=== PATIENT | female | born 1980 | race Caucasian/White ===

== ENCOUNTER 2018-02-20 21:04 | Emergency (ER) | payer MEDICAID ==
[2018-02-20] MEDS: AMOXICILLIN 500 MG CAP PO (22:18)
== END 2018-02-20 22:44 | disposition home or self-care (01) ==
LOC: M ED 21:04
DX: H72.2X1 Other marginal perforations of tympanic membrane, right ear (principal); Z79.899 Other long term (current) drug therapy
CPT/HCPCS: 99283

== ENCOUNTER 2018-05-03 20:00 | Emergency (ER) | payer OTHER, MEDICAID ==
[2018-05-03 21:33] LABS: CALCIUM OXALATE CRYSTALS RFX LARGE; KETONE, URINE AUTO RFX 1+ mg/dL (NEGATIVE); MUCUS, URINE RFX MODERATE (NEGATIVE); NITRITE, URINE AUTO RFX NEGATIVE (NEGATIVE); RBC, URINE AUTO RFX 73 /HPF (0-3); SPECIFIC GRAVITY UR AUTO RFX 1.028 (1.002-1.035); SQUAM EPITHELIAL CELL UR AURFX 25 /HPF (0-6)
[2018-05-03 21:36] LABS: LEUKOCYTE ESTERASE UR AUTO RFX 3+ (NEGATIVE); WBC, URINE AUTO RFX TNTC /HPF (0-3)
[2018-05-03 21:53] LABS: CONTROL LINE HCG INT CTR LINE PRESENT; HCG, SERUM QUALITATIVE NEGATIVE (NEGATIVE)
[2018-05-03 21:57] LABS: BASO # 0.1 10^3/uL (0.0-0.2); BASO % 0.6 % (0.0-1.0); EOS # 0.1 10^3/uL (0.0-0.50); EOS % 1.5 % (0.0-3.0); HEMATOCRIT 36.4 % (36.0-47.0); HEMOGLOBIN 11.7 g/dl (12.0-15.5); IMMATURE GRANULOCYTE % 0.4 % (0-3.0); LYMPH # 2.6 10^3/uL (1.5-4.5); MEAN CORPUSCULAR HEMOGLOBIN 30.5 pg (27.0-33.0); MEAN CORPUSCULAR HGB CONC 32.1 g/dl (32.0-36.5); MEAN CORPUSCULAR VOLUME 94.8 fl (80.0-96.0); MONO # 0.7 10^3/uL (0.0-0.8); NEUTROPHILS # 5.1 10^3/uL (1.8-7.7); NEUTROPHILS % 59.5 % (36.0-66.0); PLATELET COUNT, AUTOMATED 234 10^3/uL (150-450); RED BLOOD COUNT 3.84 10^6/uL (4.00-5.40); RED CELL DISTRIBUTION WIDTH 13.2 % (11.5-14.5); WHITE BLOOD COUNT 8.5 10^3/uL (4.0-10.0)
[2018-05-03 22:40] LABS: ANION GAP 7 MEQ/L (8-16); BLOOD UREA NITROGEN 10 MG/DL (7-18); CALCIUM LEVEL 8.6 MG/DL (8.5-10.1); CARBON DIOXIDE LEVEL 27 MEQ/L (21-32); CHLORIDE LEVEL 110 MEQ/L (98-107); CREATININE FOR GFR 0.67 MG/DL (0.55-1.30); GLOMERULAR FILTRATION RATE > 60.0 (>58); GLUCOSE, FASTING 107 MG/DL (70-100); POTASSIUM SERUM 3.6 MEQ/L (3.5-5.1); SODIUM LEVEL 144 MEQ/L (136-145)
[2018-05-03] MEDS: NITROFURANTOIN (MACROBID) 100 MG CAP PO (23:15)
== END 2018-05-03 23:27 | disposition home or self-care (01) ==
LOC: M ED 20:00
DX: N30.01 Acute cystitis with hematuria (principal)
CPT/HCPCS: 84703

== ENCOUNTER 2018-07-12 07:59 | Emergency (ER) | payer OTHER ==
[2018-07-12] MEDS: NS 1,000 ML IV (08:30)
[2018-07-12 08:34] LABS: BASO % 0.6 % (0.0-1.0); EOS # 0.1 10^3/uL (0.0-0.50); EOS % 1.3 % (0.0-3.0); HEMATOCRIT 39.9 % (36.0-47.0); IMMATURE GRANULOCYTE % 0.1 % (0-3.0); LYMPH # 1.9 10^3/uL (1.5-4.5); LYMPH % 28.3 % (24.0-44.0); MEAN CORPUSCULAR HEMOGLOBIN 30.6 pg (27.0-33.0); MEAN CORPUSCULAR HGB CONC 32.6 g/dl (32.0-36.5); MEAN CORPUSCULAR VOLUME 93.9 fl (80.0-96.0); MONO # 0.4 10^3/uL (0.0-0.8); MONO % 6.5 % (0.0-5.0); NEUTROPHILS # 4.3 10^3/uL (1.8-7.7); NEUTROPHILS % 63.2 % (36.0-66.0); PLATELET COUNT, AUTOMATED 238 10^3/uL (150-450); RED BLOOD COUNT 4.25 10^6/uL (4.00-5.40); RED CELL DISTRIBUTION WIDTH 12.4 % (11.5-14.5); WHITE BLOOD COUNT 6.7 10^3/uL (4.0-10.0)
[2018-07-12 08:48] LABS: PROTHROMBIN TIME 13.3 SECONDS (12.1-14.4)
[2018-07-12 08:59] LABS: ALBUMIN 3.3 GM/DL (3.2-5.2); ALBUMIN/GLOBULIN RATIO 0.92 (1.00-1.93); ALKALINE PHOSPHATASE 86 U/L (45-117); ALT/SGPT 26 U/L (12-78); ANION GAP 7 MEQ/L (8-16); AST/SGOT 20 U/L (7-37); BILIRUBIN,DIRECT 0.1 MG/DL (0.0-0.2); BILIRUBIN,TOTAL 0.3 MG/DL (0.2-1.0); BLOOD UREA NITROGEN 11 MG/DL (7-18); CALCIUM LEVEL 8.8 MG/DL (8.5-10.1); CARBON DIOXIDE LEVEL 26 MEQ/L (21-32); CHLORIDE LEVEL 109 MEQ/L (98-107); CK-MB VALUE MASS < 1.0 NG/ML (<3.6); CPK CREATINE PHOSPHOKINASE 24 U/L (26-192); CREATININE FOR GFR 0.77 MG/DL (0.55-1.30); GLOMERULAR FILTRATION RATE > 60.0 (>58); GLUCOSE, FASTING 81 MG/DL (70-100); LIPASE 113 U/L (73-393); MB/CK RELATIVE INDEX 4.17 (< OR =4); POTASSIUM SERUM 3.6 MEQ/L (3.5-5.1); SODIUM LEVEL 142 MEQ/L (136-145); TOTAL PROTEIN 6.9 GM/DL (6.4-8.2); TROPONIN I < 0.02 NG/ML (< 0.10)
[2018-07-12] MEDS ORDERED: GASTROGRAFIN SOLUTION 30ML (Q9963) As Ordered (10:35)
[2018-07-12] MEDS: GASTROGRAFIN SOLUTION 30ML PO ×2 (11:00→11:25)
[2018-07-12] MEDS ORDERED: ISOVUE-370 76% 100ML VIAL (Q9967) As Ordered (12:21)
== END 2018-07-12 13:32 | disposition home or self-care (01) ==
LOC: M ED 07:59
DX: R10.9 Unspecified abdominal pain (principal)
CPT/HCPCS: Q9967

== ENCOUNTER 2018-09-07 07:42 | Emergency (ER) | payer OTHER ==
[~2018-09-07] VITALS: Ht 167.6 cm; Wt 101.8 kg
[~2018-09-07 07:42] MED LIST: AMOX500C PO; CALC1TAB11 PO; CALC250T PO; CLAR10CA3 PO; FERR240T PO; MACR100C43 PO; MULTCAP PO; OCUF0.25 OP; OFLOSO OTIC; PYRI1TAB5 PO; VITA-176 PO; VITA500T53 PO; iron PO
[2018-09-07] MEDS ORDERED: AMOX875T2 PO (07:51)
[2018-09-07] MEDS ORDERED: NS 500 ML IV ONE (08:00)
[2018-09-07 08:16] LABS: BASO % 0.6 % (0.0-1.0); EOS # 0.1 10^3/uL (0.0-0.50); EOS % 1.9 % (0.0-3.0); HEMOGLOBIN 14.3 g/dl (12.0-15.5); LYMPH % 29.4 % (24.0-44.0); MEAN CORPUSCULAR HEMOGLOBIN 31.2 pg (27.0-33.0); MEAN CORPUSCULAR HGB CONC 33.3 g/dl (32.0-36.5); MEAN CORPUSCULAR VOLUME 93.9 fl (80.0-96.0); MONO # 0.5 10^3/uL (0.0-0.8); MONO % 6.8 % (0.0-5.0); NEUTROPHILS # 4.1 10^3/uL (1.8-7.7); NEUTROPHILS % 61.2 % (36.0-66.0); PLATELET COUNT, AUTOMATED 263 10^3/uL (150-450); RED BLOOD COUNT 4.58 10^6/uL (4.00-5.40); WHITE BLOOD COUNT 6.7 10^3/uL (4.0-10.0)
[2018-09-07 08:28] LABS: INR 0.99; PROTHROMBIN TIME 13.2 SECONDS (12.1-14.4)
[2018-09-07 08:29] LABS: PARTIAL THROMBOPLASTIN TIME 28.8 SECONDS (25.4-37.6)
[2018-09-07 08:51] LABS: ALBUMIN 3.5 GM/DL (3.2-5.2); ALT/SGPT 20 U/L (12-78); BILIRUBIN,DIRECT 0.2 MG/DL (0.0-0.2); BILIRUBIN,TOTAL 0.4 MG/DL (0.2-1.0); BLOOD UREA NITROGEN 14 MG/DL (7-18); CALCIUM LEVEL 8.8 MG/DL (8.5-10.1); CARBON DIOXIDE LEVEL 28 MEQ/L (21-32); CHLORIDE LEVEL 105 MEQ/L (98-107); CK-MB VALUE MASS < 1.0 NG/ML (<3.6); CPK CREATINE PHOSPHOKINASE 22 U/L (26-192); CREATININE FOR GFR 0.75 MG/DL (0.55-1.30); FREE T4 0.84 NG/DL (0.76-1.46); GLOMERULAR FILTRATION RATE > 60.0 (>58); GLUCOSE, FASTING 84 MG/DL (70-100); LIPASE 119 U/L (73-393); MB/CK RELATIVE INDEX 4.55 (< OR =4); SODIUM LEVEL 139 MEQ/L (136-145); THYROID STIMULATING HORMONE 0.694 uIU/ML (0.358-3.740); TOTAL PROTEIN 7.5 GM/DL (6.4-8.2); TROPONIN I < 0.02 NG/ML (< 0.10)
[2018-09-07] MEDS ORDERED: ISOVUE-370 76% 100ML VIAL (Q9967) As Ordered ONE (09:04)
--- NOTE | 2018-09-07 09:27 | REP ---
Chest one-view HISTORY: Chest pain Comparison: 07/12/2018 The lungs are clear. The heart is normal in size. The pulmonary vasculature is normal in appearance. Impression: No acute disease. Electronically Signed by David Bourgeois MD 09/07/2018 09:19 A
--- NOTE | 2018-09-07 09:47 | REP ---
CT PULMONARY ANGIOGRAM: With IV contrast. HISTORY: History of gastric bypass surgery. Rule out pulmonary embolus. Chest pain. COMPARISON STUDIES: No comparison chest CT. CONTRAST DOSE: 100 mL of Isovue [address] TECHNIQUE: Helical scanning is acquired and overlapping 1.5 mm and contiguous 3 mm axial images are reformatted. In addition, maximum intensity projection and multiplanar re-formation images are generated in sagittal and coronal imaging projections. CT PULMONARY ANGIOGRAPHIC FINDINGS: There is good opacification of the pulmonary arterial tree. There is no CT evidence of pulmonary embolism. Thoracic aorta enhances homogeneously without evidence of aneurysm or dissection. No hilar or mediastinal mass or adenopathy is observed. Gastric bypass sutures are noted in the left upper abdomen. No adrenal lesion is seen. There is no pleural or pericardial effusion. The lung lux are clear. No bony abnormality is seen. IMPRESSION: No CT evidence of pulmonary embolus. Status post gastric bypass procedure. No active cardiopulmonary disease. Electronically Signed by Han Acevedo MD 09/07/2018 10:46 A
--- NOTE | 2018-09-07 09:50 | REP ---
CT ABDOMEN PELVIS WITH IV BUT WITHOUT ORAL CONTRAST: HISTORY: History of gastric bypass procedure. Rule out abdominal pathology. Comparison CT study July 12, 2018. CT contrast dose: 100 mL of intravenous Isovue 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 There is some evidence of mild fatty infiltration of the liver. Gastric bypass sutures are noted in the left upper abdomen. No abnormal fluid collection is seen. No adrenal lesion is observed. The pancreas is unremarkable. No splenic abnormality is seen. The kidneys enhance symmetrically and are morphologically intact. Some tiny cysts are seen in the right lower pole. No retroperitoneal mass or adenopathy is seen. No abdominal wall defect. Urinary bladder, uterus, and ovaries are unremarkable. There is left colonic diverticulosis. The previously noted mural thickening in the left colon has resolved. There is no evidence of enterocolitis or diverticulitis. Normal appendix is seen. No bony abnormality is observed. IMPRESSION: Status post gastric bypass procedure. Left colonic diverticulosis without evidence of diverticulitis or enterocolitis today. Normal appendix seen. No acute abdominal or pelvic abnormality. Electronically Signed by Han Acevedo MD 09/07/2018 10:46 A
[2018-09-07 12:47] LABS: CK-MB VALUE MASS < 1.0 NG/ML (<3.6); CPK CREATINE PHOSPHOKINASE 28 U/L (26-192); MB/CK RELATIVE INDEX 3.57 (< OR =4); TROPONIN I < 0.02 NG/ML (< 0.10)
[2018-09-07 13:15] VITALS: BP 129/73
--- NOTE | 2018-09-07 19:56 | ECGEPIP ---
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
--- NOTE | 2018-09-07 20:08 | ECGEPIP ---
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
== END 2018-09-07 13:27 | disposition home or self-care (01) ==
LOC: M ED 07:42
DX: R07.89 Other chest pain (principal); R11.0 Nausea; I10 Essential (primary) hypertension; Z98.84 Bariatric surgery status; Z79.899 Other long term (current) drug therapy; Z79.2 Long term (current) use of antibiotics
CPT/HCPCS: 36415; 71045; 71275; 74177; 80048; 80076; 82550; 82553; 83690; 84439; 84443; 85025; 85610; 85730; 93005; 93041; 94760; 96360; 96361; 99285; Q9967

== ENCOUNTER 2018-12-28 08:46 | Emergency (ER) | payer OTHER ==
[~2018-12-28] VITALS: Ht 165.1 cm; Wt 112.7 kg
[~2018-12-28 08:46] MED LIST changes: +AMOX875T2 PO; +CITRTAB13 PO; +VITA500T17 PO; -VITA500T53 PO
[2018-12-28] MEDS ORDERED: LORA-674 (08:53)
[2018-12-28] MEDS ORDERED: KEFL500C17 PO (09:36)
[2018-12-28] MEDS ORDERED: KETOROLAC 60 MG/2 ML VIAL (J1885) IM ONE (09:45)
[2018-12-28] MEDS ORDERED: CEPHALEXIN 500 MG CAP PO ONE (09:45)
[2018-12-28 10:04] VITALS: BP 127/67
== END 2018-12-28 10:17 | disposition home or self-care (01) ==
LOC: M ED 08:46
DX: G89.29 Other chronic pain (principal); M25.561 Pain in right knee; M25.562 Pain in left knee; G89.18 Other acute postprocedural pain; Z98.84 Bariatric surgery status; E78.00 Pure hypercholesterolemia, unspecified; K57.32 Diverticulitis of large intestine without perforation or abscess without bleeding; E34.9 Endocrine disorder, unspecified; E04.9 Nontoxic goiter, unspecified; Z79.899 Other long term (current) drug therapy; Z91.030 Bee allergy status
CPT/HCPCS: 96372; 99284; J1885

== ENCOUNTER 2019-04-07 15:53 | Emergency (ER) | payer OTHER ==
[~2019-04-07] VITALS: Ht 165.1 cm; Wt 82.7 kg
[~2019-04-07 15:53] MED LIST changes: +KEFL500C17 PO; +LORA-674
[2019-04-07] MEDS ORDERED: LIDOCAINE 2% W/ EPINEPHRINE 1.7 ML DENTAL INJ SM ONE (17:15)
[2019-04-07] MEDS ORDERED: BENZOCAINE 20% GEL 9GM TUBE (ANBESOL MAX STRENGTH) TOP ONE (17:15)
[2019-04-07] MEDS ORDERED: AUGM875T28 PO (17:38)
[2019-04-07 17:42] VITALS: BP 155/71
== END 2019-04-07 17:45 | disposition home or self-care (01) ==
LOC: M ED 15:53
DX: K04.7 Periapical abscess without sinus (principal); K02.9 Dental caries, unspecified; Z98.84 Bariatric surgery status; E78.00 Pure hypercholesterolemia, unspecified; K57.32 Diverticulitis of large intestine without perforation or abscess without bleeding; E04.9 Nontoxic goiter, unspecified; Z79.899 Other long term (current) drug therapy; Z91.030 Bee allergy status

== ENCOUNTER 2019-06-02 06:04 | Day surgery (SDC) | payer OTHER ==
[2019-06-02] VITALS (8 sets, daily range): BP systolic 119–143; BP diastolic 63–83
[~2019-06-02] VITALS: Ht 165.1 cm; Wt 120.7 kg
[~2019-06-02 06:04] MED LIST changes: +AUGM875T28 PO; +LIDOCAINE 1% MDV 20ML VIAL SQ PRN; -LORA-674; +LORA-674 PO; +LR 1,000 ML IV ONE; +ceFAZolin SOD 2 GM in IV 1 EA IV ONE
[2019-06-02 06:33] LABS: HEMATOCRIT 40.8 % (36.0-47.0); HEMOGLOBIN 13.4 g/dl (12.0-15.5); MEAN CORPUSCULAR HEMOGLOBIN 31.2 pg (27.0-33.0); MEAN CORPUSCULAR HGB CONC 32.8 g/dl (32.0-36.5); MEAN CORPUSCULAR VOLUME 94.9 fl (80.0-96.0); PLATELET COUNT, AUTOMATED 255 10^3/uL (150-450); WHITE BLOOD COUNT 6.3 10^3/uL (4.0-10.0)
[2019-06-02] MEDS ORDERED: ONDANSETRON 4MG/2ML VIAL (J2405) As Ordered ONE ×2 (07:08→11:22)
[2019-06-02] MEDS ORDERED: ROCURONIUM BROMIDE 50 MG/5 ML VIAL As Ordered ONE ×3 (07:08→09:18)
[2019-06-02] MEDS ORDERED: PROPOFOL 200 MG/20 ML VIAL As Ordered ONE (07:08)
[2019-06-02] MEDS ORDERED: LIDOCAINE 2% INJ 100 MG/5 ML SDV (FOR ANES.) As Ordered ONE (07:08)
[2019-06-02] MEDS ORDERED: dexameTHASONE 4 MG/ML 1ML VIAL (J1100) As Ordered ONE (07:08)
[2019-06-02] MEDS ORDERED: fentaNYL 100 MCG/2 ML INJECTION (J3010) As Ordered ONE ×2 (07:09→10:08)
[2019-06-02] MEDS ORDERED: MIDAZOLAM INJ 2 MG/2 ML VIAL (J2250) As Ordered ONE (07:09)
[2019-06-02] MEDS ORDERED: LACRILUBE (AKWA TEARS) OPHTH OINT 3.5 GM As Ordered ONE (07:12)
[2019-06-02] MEDS ORDERED: METHYLENE BLUE 0.5% (5MG/ML) 10 ML AMP (PROVAYBLUE)(Q9968 PER 1MG) As Ordered ONE (07:13)
[2019-06-02] MEDS ORDERED: SCOPOLAMINE 1MG TRANSDERMAL PATCH As Ordered ONE (07:29)
[2019-06-02] MEDS ORDERED: SCOPOLAMINE 1MG TRANSDERMAL PATCH TOP ONE (07:45)
[2019-06-02] MEDS ORDERED: HYDROmorphone HCL 2 MG/ML 1ML VIAL (J1170) As Ordered ONE (07:55)
[2019-06-02] MEDS ORDERED: KETAMINE HCL 200 MG/20 ML VIAL As Ordered ONE (08:20)
[2019-06-02] MEDS ORDERED: SUGAMMADEX SODIUM 500 MG/5 ML VIAL (BRIDION) As Ordered ONE (08:23)
[2019-06-02] MEDS ORDERED: ACETAMINOPHEN 1000MG 100ML IV BTL (OFIRMEV) (J0131 PER 10MG) As Ordered ONE (08:23)
[2019-06-02] MEDS ORDERED: DESFLURANE 240 ML INHALANT As Ordered ONE (09:23)
[2019-06-02] MEDS ORDERED: MORPHINE 1MG/ML IN 0.9% NACL 100ML IV BAG As Ordered ONE (11:32)
[2019-06-02] MEDS ORDERED: IBUPROFEN 600 MG TAB PO PRN (11:45)
[2019-06-02] MEDS ORDERED: LR 1,000 ML IV SCH ×2 (12:00)
[2019-06-02] MEDS ORDERED: fentaNYL 100 MCG/2 ML INJECTION (J3010) IV PRN (12:00)
[2019-06-02] MEDS ORDERED: NALBUPHINE HCL 10 MG/ML AMP (J2300) IV PRN (12:00)
[2019-06-02] MEDS ORDERED: ONDANSETRON 4MG/2ML VIAL (J2405) IV PRN (12:00)
[2019-06-02] MEDS ORDERED: diphenhydrAMINE INJ 50MG/ML VIAL (J1200) IV PRN (12:00)
[2019-06-02] MEDS ORDERED: MORPHINE 1MG/ML IN 0.9% NACL 100ML IV BAG IV PRN (12:00)
[2019-06-02] MEDS ORDERED: NALOXONE INJ 0.4 MG/1 ML VIAL (J2310) IV PRN (12:00)
[2019-06-02] MEDS ORDERED: METOCLOPRAMIDE INJ 10MG/2ML VIAL (J2765) IV PRN (12:00)
[2019-06-02] MEDS ORDERED: oxyCODONE 5MG TAB PO PRN (12:00)
[2019-06-02] MEDS ORDERED: EPIDURAL/PCA KEYS XX PRN (12:00)
[2019-06-02] MEDS ORDERED: MEPERIDINE INJ 25 MG/ML VIAL (J2175) IV PRN (12:00)
[2019-06-02] MEDS: LR 1,000 ML IV SCH ×2 (15:00→22:33)
--- NOTE | 2019-06-02 16:09 | RO ---
DATE OF PROCEDURE: 06/02/2019 PREOPERATIVE DIAGNOSIS: Pain and bleeding. POSTOPERATIVE DIAGNOSIS: Pain and bleeding, plus adhesions and evidence of endometriosis. OPERATIVE PROCEDURE: Robotic-assisted hysterectomy with bilateral salpingo-oophorectomy. She did have lysis of adhesions, but they were more or less incidental to the case. SURGEON: Susanna Mcmahon MD CASINO SHIFT MANAGER: None. ANESTHESIA: General endotracheal anesthesia. BRIEF DESCRIPTION OF PROCEDURE AND FINDINGS: Shelly was brought to the operating room where sufficient general endotracheal anesthesia was induced and she was prepped, draped and positioned in the usual sterile fashion with the uterine manipulator placed after the uterus had been sounded to 11 and the Gray placed. Attention was then turned to the abdomen. A transverse semilunar incision was made below the umbilicus. Sharp and blunt dissection were continued through subcutaneous tissues to the level of the rectus fascia which was elevated transversely incised and secured with #0 Vicryl retention sutures and the peritoneum then bluntly entered. The patient's tissues were of less tensile strength than some and the suture tore through it, actually had to resuture that and place the Bran cannula for CO2 insufflation. We had quite a bit of leakage at the umbilical wound. We went ahead and put another suture through the wound to try to tighten up the wound to facilitate good seal, tried to incorporate fascia and skin in that but it tore through the fascia so I subsequently found out at the end of the case, and so we did have a sort of mediocre seal there. We placed two left-sided, one right side port and docked the robot with the patient in steep Trendelenburg and began working starting on the left infundibulopelvic. We did take down some adhesions to the intestines in order to free up the infundibulopelvics so we could then cauterize it and transect it. We used the bipolar cautery throughout the case for cauterization and cold scissors most of the time except as otherwise dictated. Having freed the distal portion of her tubes which clearly had had tubal ligation before and the ovary from the infundibulopelvic and worked our way towards the round ligament, we continued to the broad, dissecting down posteriorly toward the ureterosacral and then cauterized and transected the round ligament on the left side as well and then went over to the right side using the uterus to place some tension on the adnexa and elevate the ovary and then isolated the infundibulopelvic ligament on the right side, cauterized and transected it, working very close to the ovary here so as to avoid injury to the other tissues and then working through this pedicle to the round. The patient had a very atypical largely vascular round ligament. These vessels clearly were bleeding blood. We were able to see the course of the ureter proximal to the infundibulopelvic ligament and not running through the round, but these were atypically large vessels, but we proceeded with considerable caution and just gradually worked our way through these. She did not have the kind of large fibroids one often sees with that kind of vascularity. The uterus sounded to 11, it was not small, but it was a fairly average contour. I went ahead and dissected anteriorly through the broad ligament as well and using the cold scissors, transected the peritoneum across the front of the uterus. We backfilled the bladder as needed and we were well above it. We were able to dissect the bladder flap free. There were some adhesions there anteriorly, so we did have to use cautery, but we had backfilled several times so we had a good sense of where the bladder was to avoid injury to it and we then cauterized the uterine vasculature. Again, there was redundancy of the blood vessels. We worked a little distal to the typical and then worked our way down to where we had to be to transect the colpotomy and just controlled the vessels in several steps rather than trying to get them all at once. We made the initial colpotomy posteriorly and left the uterosacrals attached in this hysterectomy for benign disease working above them laterally and then coming down posteriorly to make the colpotomy in the midline and working back up so that we could leave the uterosacrals fully attached and essentially do an extrafascial hysterectomy. We then having gotten about half way around the uterus, went back to the front and connected up that dissection, carefully cauterizing any uterine vasculature that needed it as we worked. Having completed the colpotomy we delivered the uterus into the vagina and then closed the vaginal cuff with Monocryl suture with good approximation and hemostasis achieved. We suctioned out some of the old blood in the pelvis and left the tissues on low tension. We could see that there was no bleeding and no evidence of injury to bladder with backfilling and no evidence of injury to the bowel. We then ended the robotic portion of the case. With the CO2 allowed to escape the abdomen and the instruments removed, and the trocars removed, the patient was removed from Trendelenburg as well and of course the robot backed off. We closed the wounds, fascial wound at the umbilicus with a #0 Vicryl retention suture. Went back and resutured that because it had pulled through as I already noted and having closed the fascia there we went ahead and closed the skin at all four wounds with #3-0 Vicryl in a subcuticular stitch. Dry sterile dressings were then applied. Estimated blood loss for the procedure about 75 mL. Fluid replacement was crystalloid. Complications: None. CONDITION AND DISPOSITION: Shelly tolerated the procedure well and was recovering in the recovery room in good condition.
[2019-06-03] VITALS: BP 124/67
[2019-06-03 04:00] VITALS: BP 134/68
[2019-06-03] MEDS ORDERED: NORCO, ANEXSIA 5/325MG TABLET (HYDROcodone/ACETAMINOPHEN) PO PRN ×2 (06:00)
[2019-06-03 07:34] LABS: HEMATOCRIT 36.7 % (36.0-47.0); HEMOGLOBIN 12.5 g/dl (12.0-15.5); MEAN CORPUSCULAR HEMOGLOBIN 31.9 pg (27.0-33.0); MEAN CORPUSCULAR HGB CONC 34.1 g/dl (32.0-36.5); MEAN CORPUSCULAR VOLUME 93.6 fl (80.0-96.0); PLATELET COUNT, AUTOMATED 245 10^3/uL (150-450); RED BLOOD COUNT 3.92 10^6/uL (4.00-5.40); WHITE BLOOD COUNT 8.8 10^3/uL (4.0-10.0)
[2019-06-03] MEDS: LR 1,000 ML IV SCH (07:59)
[2019-06-03 08:00] VITALS: BP 139/70
[2019-06-03] MEDS ORDERED: ACETAMINOPHEN TAB 650MG DOSE (2X325MG) PO ONE (09:00)
[2019-06-03] MEDS ORDERED: MULTIVITAMINS/MINERALS THERAP 1 TAB PO SCH (09:00)
== END 2019-06-03 09:25 | disposition home or self-care (01) ==
LOC: M SDC 06:04 → M PED 12:22 → M SDC 06-03 09:25
PROVIDERS: ATTEND Obstetrics & Gynecology
DX: N93.9 Abnormal uterine and vaginal bleeding, unspecified (principal); K66.0 Peritoneal adhesions (postprocedural) (postinfection); N80.0 Endometriosis of uterus; N83.11 Corpus luteum cyst of right ovary; E04.1 Nontoxic single thyroid nodule; N39.41 Urge incontinence; E66.9 Obesity, unspecified; Z68.38 Body mass index [BMI] 38.0-38.9, adult; Z91.030 Bee allergy status; Z79.899 Other long term (current) drug therapy; Z86.59 Personal history of other mental and behavioral disorders; Z98.51 Tubal ligation status; Z98.84 Bariatric surgery status
CPT/HCPCS: 36415; 58571; 85027; 86850; 86900; 86901; 88307; 96374; 96375; J0131; J0690; J1100; J1170; J2250; J2405; J2765; J3010; Q9968

== ENCOUNTER → 2019-12-13 | Outpatient (REF) | payer OTHER ==
[~2019-12-13] MED LIST changes: -CITRTAB13 PO; +CITRTAB16 PO; -LIDOCAINE 1% MDV 20ML VIAL SQ PRN; -LR 1,000 ML IV ONE; -ceFAZolin SOD 2 GM in IV 1 EA IV ONE
[2019-12-13 13:37] LABS: BASO % 0.4 % (0.0-1.0); EOS # 0.3 10^3/uL (0.0-0.5); EOS % 4.3 % (0.0-3.0); HEMATOCRIT 39.7 % (36.0-47.0); LYMPH # 2.2 10^3/uL (1.5-5.0); LYMPH % 28.4 % (24.0-44.0); MEAN CORPUSCULAR HEMOGLOBIN 30.4 pg (27.0-33.0); MEAN CORPUSCULAR HGB CONC 32.7 g/dl (32.0-36.5); MEAN CORPUSCULAR VOLUME 92.8 fl (80.0-96.0); MONO # 0.5 10^3/uL (0.0-0.8); MONO % 6.9 % (0.0-5.0); NEUTROPHILS # 4.7 10^3/uL (1.5-8.5); NEUTROPHILS % 59.7 % (36.0-66.0); PLATELET COUNT, AUTOMATED 293 10^3/uL (150-450); RED BLOOD COUNT 4.28 10^6/uL (4.00-5.40); WHITE BLOOD COUNT 7.8 10^3/uL (4.0-10.0)
[2019-12-13 14:01] LABS: CHOLESTEROL RISK RATIO 2.628 (<5); FREE T4 0.94 NG/DL (0.76-1.46); THYROID STIMULATING HORMONE 1.21 uIU/ML (0.358-3.740); TOTAL 25(OH) VITAMIN D 33.7 NG/ML (30.0-100.0)
[2019-12-13 14:12] LABS: HEMOGLOBIN A1c 5.9 %
== END ==
LOC: M SFHCPLAZ 12:05
PROVIDERS: ATTEND Physician Assistant
DX: Z98.84 Bariatric surgery status (principal); Z13.1 Encounter for screening for diabetes mellitus; Z13.220 Encounter for screening for lipoid disorders

== ENCOUNTER → 2021-02-22 | Outpatient (CLI) | payer OTHER ==
[2021-02-22 10:59] LABS: HEMATOCRIT 38.4 % (36.0-47.0); HEMOGLOBIN 12.4 g/dl (12.0-15.5); MEAN CORPUSCULAR HEMOGLOBIN 29.5 pg (27.0-33.0); MEAN CORPUSCULAR HGB CONC 32.3 g/dl (32.0-36.5); MEAN CORPUSCULAR VOLUME 91.4 fl (80.0-96.0); PLATELET COUNT, AUTOMATED 271 10^3/uL (150-450); WHITE BLOOD COUNT 6.6 10^3/uL (4.0-10.0)
[2021-02-22 11:20] LABS: HEMOGLOBIN A1c 5.6 %
[2021-02-22 11:30] LABS: ALBUMIN 3.4 GM/DL (3.2-5.2); ALT/SGPT 18 U/L (12-78); BILIRUBIN,TOTAL 0.3 MG/DL (0.2-1.0); BLOOD UREA NITROGEN 13 MG/DL (7-18); CALCIUM LEVEL 8.3 MG/DL (8.5-10.1); CARBON DIOXIDE LEVEL 28 MEQ/L (21-32); CHLORIDE LEVEL 109 MEQ/L (98-107); CHOLESTEROL LEVEL 182 MG/DL (<200); CHOLESTEROL RISK RATIO 2.757 (<5); CREATININE FOR GFR 0.77 MG/DL (0.55-1.30); GLOMERULAR FILTRATION RATE > 60.0 (>58); GLUCOSE, FASTING 84 MG/DL (70-100); HDL CHOLESTEROL 66 MG/DL (>40); IRON (FE) 62 UG/DL (50-170); LDL CHOLESTEROL 99 MG/DL (<100); NON-HDL-C 116 MG/DL; POTASSIUM SERUM 4.3 MEQ/L (3.5-5.1); SODIUM LEVEL 140 MEQ/L (136-145); TOTAL PROTEIN 6.9 GM/DL (6.4-8.2); TRIGLYCERIDES LEVEL 83 MG/DL (<150)
[2021-02-22 11:31] LABS: TOTAL 25(OH) VITAMIN D 27.3 NG/ML (30.0-100.0); VITAMIN B12 LEVEL 473 PG/ML
[2021-02-22 11:32] LABS: FOLATE 8.4 NG/ML
== END ==
LOC: M PLALAB 08:13
PROVIDERS: ATTEND Physician Assistant
DX: R73.01 Impaired fasting glucose (principal); Z98.84 Bariatric surgery status; Z00.00 Encounter for general adult medical examination without abnormal findings

== ENCOUNTER → 2021-11-28 | Outpatient (CLI) | payer OTHER ==
[2021-11-28 15:44] LABS: INR 0.9; PROTHROMBIN TIME 12.6 SECONDS (12.7-14.5)
[2021-11-28 15:45] LABS: PARTIAL THROMBOPLASTIN TIME 30.9 SECONDS (25.9-37.0)
[2021-11-28 15:49] LABS: BASO # 0.1 10^3/uL (0.0-0.2); BASO % 0.6 % (0.0-1.0); EOS # 0.3 10^3/uL (0.0-0.5); EOS % 3.5 % (0.0-3.0); HEMATOCRIT 40.3 % (36.0-47.0); HEMOGLOBIN 12.9 g/dl (12.0-15.5); LYMPH # 2.9 10^3/uL (1.5-5.0); LYMPH % 33.6 % (24.0-44.0); MEAN CORPUSCULAR HEMOGLOBIN 29.7 pg (27.0-33.0); MEAN CORPUSCULAR VOLUME 92.6 fl (80.0-96.0); MONO # 0.7 10^3/uL (0.0-0.8); MONO % 7.8 % (2.0-8.0); NEUTROPHILS # 4.6 10^3/uL (1.5-8.5); NEUTROPHILS % 54.1 % (36.0-66.0); PLATELET COUNT, AUTOMATED 320 10^3/uL (150-450); RED BLOOD COUNT 4.35 10^6/uL (4.00-5.40); WHITE BLOOD COUNT 8.6 10^3/uL (4.0-10.0)
[2021-11-28 16:26] LABS: ALBUMIN 3.4 GM/DL (3.2-5.2); ALT/SGPT 22 U/L (12-78); BILIRUBIN,TOTAL 0.3 MG/DL (0.2-1.0); BLOOD UREA NITROGEN 10 MG/DL (7-18); CARBON DIOXIDE LEVEL 30 MEQ/L (21-32); CHLORIDE LEVEL 108 MEQ/L (98-107); CREATININE FOR GFR 0.83 MG/DL (0.55-1.30); FERRITIN 34 NG/ML (8-252); FREE T4 0.93 NG/DL (0.76-1.46); GLOMERULAR FILTRATION RATE > 60.0 (>58); GLUCOSE, FASTING 90 MG/DL (70-100); NT-PRO BNP 141 PG/ML (<125); POTASSIUM SERUM 4.9 MEQ/L (3.5-5.1); SODIUM LEVEL 141 MEQ/L (136-145); THYROID STIMULATING HORMONE 0.898 uIU/ML (0.358-3.740); TOTAL 25(OH) VITAMIN D 36.2 NG/ML (30.0-100.0); TOTAL PROTEIN 7.2 GM/DL (6.4-8.2)
[2021-11-28 16:27] LABS: PTH INTACT 92.3 PG/ML (18.5-88.0); THYROID PEROXIDASE ANTIBODY > 1300.0 U/ML (<60.0)
== END ==
LOC: M PLALAB 11:45
PROVIDERS: ATTEND Family Medicine
DX: I10 Essential (primary) hypertension (principal)

== ENCOUNTER → 2022-10-24 | Outpatient (CLI) | payer OTHER ==
[~2022-10-24] MED LIST changes: +CITRACAL MAXIMU1 TAB PO; -CITRTAB16 PO
[2022-10-24 10:55] LABS: BASO # 0.1 10^3/uL (0.0-0.2); BASO % 0.9 % (0.0-1.0); EOS # 0.3 10^3/uL (0.0-0.5); EOS % 4.5 % (0.0-3.0); HEMATOCRIT 41.2 % (36.0-47.0); HEMOGLOBIN 12.8 g/dl (12.0-15.5); LYMPH # 2.4 10^3/uL (1.5-5.0); LYMPH % 35.3 % (24.0-44.0); MEAN CORPUSCULAR HEMOGLOBIN 29.2 pg (27.0-33.0); MEAN CORPUSCULAR HGB CONC 31.1 g/dl (32.0-36.5); MEAN CORPUSCULAR VOLUME 93.8 fl (80.0-96.0); MONO # 0.5 10^3/uL (0.0-0.8); NEUTROPHILS # 3.4 10^3/uL (1.5-8.5); PLATELET COUNT, AUTOMATED 302 10^3/uL (150-450); RED BLOOD COUNT 4.39 10^6/uL (4.00-5.40); WHITE BLOOD COUNT 6.7 10^3/uL (4.0-10.0)
[2022-10-24 11:00] LABS: HEMOGLOBIN A1c 5.6 % (4.0-6.0)
[2022-10-24 11:16] LABS: FREE T3 2.6 PG/ML (2.3-4.2)
[2022-10-24 11:17] LABS: THYROID STIMULATING HORMONE 8.987 uIU/ML (0.55-4.78); TOTAL 25(OH) VITAMIN D 44.4 NG/ML (20.0-100.0); VITAMIN B12 LEVEL 383 PG/ML (211-911)
[2022-10-24 11:18] LABS: ALBUMIN 3.4 G/DL (3.2-5.2); ALKALINE PHOSPHATASE 86 U/L (46-116); ALT/SGPT 17 U/L (7.0-40); AST/SGOT 15 U/L (<34); BILIRUBIN,TOTAL 0.3 MG/DL (0.3-1.2); BLOOD UREA NITROGEN 12 MG/DL (9-23); CALCIUM LEVEL 8.3 MG/DL (8.5-10.1); CARBON DIOXIDE LEVEL 31 MMOL/L (20-31); CHLORIDE LEVEL 106 MMOL/L (98-107); CHOLESTEROL LEVEL 180 MG/DL (<200); CHOLESTEROL RISK RATIO 2.73 (<5); CREATININE FOR GFR 0.79 MG/DL (0.55-1.30); GLOMERULAR FILTRATION RATE > 60.0 (>58); GLUCOSE, FASTING 79 MG/DL (60-100); HDL CHOLESTEROL 65.9 MG/DL (>40); IRON (FE) 69 UG/DL (50-170); LDL CHOLESTEROL 87.3 MG/DL (<100); NON-HDL-C 114 MG/DL; POTASSIUM SERUM 4.8 MMOL/L (3.5-5.1); SODIUM LEVEL 142 MMOL/L (136-145); TOTAL IRON BINDING CAPACITY 363 UG/DL (250-425); TOTAL PROTEIN 6.9 G/DL (5.7-8.2); TRIGLYCERIDES LEVEL 134 MG/DL (<150)
== END ==
LOC: M PLALAB 07:54
PROVIDERS: ATTEND Physician Assistant
DX: Z98.84 Bariatric surgery status (principal); E89.0 Postprocedural hypothyroidism